=== PATIENT | male | born 1960 | race Caucasian/White ===

== ENCOUNTER → 2017-11-12 | Emergency (ER) | payer OTHER ==
[~2017-11-12] VITALS: Ht 160 cm; Wt 74.8 kg
[~2017-11-12] MED LIST: FORTAMET1000 MG; GLIMEPIRIDE2 MG; JANUVIA25 MG; PANTOPRAZOLE SO20 MG; VITAMIN C1000 MG
== END | disposition home or self-care (01) ==
LOC: EDBD 11:35 → ER 11:35 → CPU-OBS 11:52
DX: R07.89 Other chest pain (principal)
CPT/HCPCS: 93005; G0378; G0379

== ENCOUNTER 2022-04-30 08:10 | Outpatient (CLI) | payer OTHER | END 2022-04-30 08:19 | disposition home or self-care (01) | LOC: RX STUDY 08:10 | PROVIDERS: ATTEND Internal Medicine Gastroenterology | DX: R13.10 Dysphagia, unspecified (principal) ==